=== PATIENT | female | born 1980 | race Caucasian/White ===

== ENCOUNTER 2021-03-21 22:40 | Emergency (ER) | payer OTHER | END 2021-03-21 23:00 | disposition left against medical advice (07) | LOC: ER1 22:40 | DX: Z53.21 Procedure and treatment not carried out due to patient leaving prior to being seen by health care provider (principal) ==

== ENCOUNTER 2021-03-21 23:07 | Emergency (ER) | payer OTHER | END 2021-03-22 02:20 | disposition left against medical advice (07) | LOC: ER1 23:07 | DX: Z53.21 Procedure and treatment not carried out due to patient leaving prior to being seen by health care provider (principal) ==